=== PATIENT | female | born 1990 | race Caucasian/White ===

== ENCOUNTER 2021-06-19 07:47 | Inpatient (IN) ==
[~2021-06-19 07:47] MED LIST: *HR* Nalbuphine 10 MG/ML AMPUL IV PRN; Azithromycin 500 MG in 0.9 % Sodium Chloride 250 ML IVPB PRN; Famotidine 20 MG/2 ML VIAL IVP PRN; Lidocaine 1% 20 ML MDV ID PRN; Metoclopramide 10 MG/2 ML VIAL IVP PRN; Naloxone 0.4 MG/ML INJ IVP PRN; Ondansetron 4 MG/2 ML VIAL IVP PRN
[2021-06-19] MEDS ORDERED: Ringers Solution, Lactated 1,000 ML IVC SCH (08:00)
[2021-06-19 08:18] LABS: Basophils % 0.3 %; Eosinophils # 0.2 K/mcL (0.0-0.6); Eosinophils % 1.3 %; Hematocrit 35.1 % (35.3-44.9); Hemoglobin 12.3 g/dL (11.5-15.4); Lymphocytes # 2.2 K/mcL (0.6-4.6); Lymphocytes % 15.3 %; Mean Corpuscular Hemoglobin 31.7 pg (28.0-33.3); Mean Corpuscular Volume 90.5 fL (83.0-100.0); Mean Platelet Volume 8.8 fL (9.4-12.4); Monocytes # 0.6 K/mcL (0.0-1.3); Neutrophils # 11.3 K/mcL (1.6-8.9); Platelet Count 225 K/mcL (140-400); Red Blood Count 3.88 M/mcL (3.82-4.97); Red Cell Distribution Width 12.9 % (11.5-14.5); Segmented Neutrophils % 78.1 %; White Blood Count 14.4 K/mcL (4.3-11.1)
[2021-06-19] MEDS ORDERED: Azithromycin 250 MG TABLET PO ONE (08:24)
[2021-06-19] MEDS ORDERED: Ampicillin 2,000 MG in 0.9 % Sodium Chloride Mini Bag 100 ML IVPB ONE (08:24)
[2021-06-19] MEDS ORDERED: Betamethasone Acet/SodPhos 30 MG/5 ML VIAL IM SCH (08:30)
[2021-06-19 08:38] LABS: Bacteria,Urine Few per hpf (None-Few); Bilirubin,Urine Negative (Negative); Blood,Urine Small (Negative); Clarity,Urine Turbid (Clear); Color,Urine Light-Yellow (Yellow); Glucose,Urine (UA) Normal (Normal); Ketones,Urine Negative (Negative); Leukocyte Esterase,Urine Small (Negative); Mucus,Urine Few per lpf (None-Few); Nitrite,Urine Negative (Negative); Protein,Urine 70 mg/dL (Neg-Trace); RBC,Urine 15-30 per hpf (0-3); Renal Epithelial Cells,Urine Few per hpf (None-Few); Squamous Epithelial Cell,Urine Many per hpf (None-Few); Transitional Epi Cells,Urine Few per hpf (None-Few); Urobilinogen,Urine Normal (Normal); WBC,Urine 15-30 per hpf (0-3)
[2021-06-19 09:04] LABS: Amphetamine Screen,Urine Negative ng/mL (Cutoff=1000); Barbiturate Screen,Urine Negative ng/mL (Cutoff=200); Benzodiazepines Screen,Urine Negative ng/mL (Cutoff=200); Cannabinoid Screen,Urine Negative ng/mL (Cutoff = 50); Cocaine Screen,Urine Negative ng/mL (Cutoff= 300); Opiate Screen,Urine Negative ng/mL (Cutoff=300); Phencyclidine Screen,Urine Negative ng/mL (Cutoff=25)
[2021-06-19 09:22] LABS: Influenza A PCR Negative (Negative); Influenza B PCR Negative (Negative); Resp. Syncytial Virus PCR Negative (Negative); SARS-CoV-2 by PCR (In House) Negative (Negative)
[2021-06-19 09:25] LABS: Creatinine,Urine 43 mg/dL; Protein/Creatinine Ratio,Urine 2.09 mg/mg (0.00-0.20)
[2021-06-19 09:27] LABS: Alanine Aminotransferase 10 Units/L (7-52); Aspartate Amino Transferase 13 Units/L (13-39); BUN/Creatinine Ratio 19 (6-26); Blood Urea Nitrogen 13 mg/dL (6-20); Lactate Dehydrogenase 162 Units/L (140-271); Uric Acid 4.3 mg/dL (2.3-7.6); eGFR For African Americans > 60 (> 60); eGFR For Non-African Americans > 60 (> 60)
[2021-06-19] MEDS ORDERED: Magnesium Sulf 20 gm/SW 500mL 20 GM/500 ML IV.SOLN IVC SCH (09:45)
[2021-06-19] MEDS ORDERED: Calcium Gluconate 1,000 MG/10 ML VIAL ONE (10:19)
== END 2021-06-19 10:58 | disposition short-term general hospital (02) | DRG 833 ==
LOC: 1NENULAB
PROVIDERS: ADMIT Registered Nurse; ATTEND Registered Nurse